=== PATIENT | female | born 2000 | race Caucasian/White ===

== ENCOUNTER 2022-04-25 16:26 | Emergency (ER) | payer OTHER ==
[~2022-04-25] VITALS: Ht 154.9 cm; Wt 60.3 kg
[2022-04-25] MEDS ORDERED: IBUPROFEN 600 MG TABLET PO ONE (17:00)
[2022-04-25] MEDS ORDERED: ACETAMINOPHEN ES 500 MG TABLET PO ONE ×2 (17:00→18:30)
[2022-04-25] MEDS ORDERED: IBUPROFEN 600 MG TABLET ONE (17:11)
[2022-04-25] MEDS ORDERED: ACETAMINOPHEN ES 500 MG TABLET ONE ×2 (17:11→18:26)
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
--- NOTE | 2022-04-25 17:20 | NUR ---
CT SCAN PERFORMED AT THIS TIME, FRIEND AT WAITING IN ROOM
[2022-04-25 17:46] VITALS: BP 120/63
--- NOTE | 2022-04-25 17:47 | NUR ---
IV R AC PATENT FLUSHING INTACT
[2022-04-25] MEDS ORDERED: IBUP-1953 PO (19:35)
--- NOTE | 2022-04-25 20:05 | NUR ---
Patient discharged to home in stable condition. Written and verbal after care instructions given. Patient verbalizes understanding of instruction.
== END 2022-04-25 20:06 | disposition home or self-care (01) ==
LOC: ER 16:29
DX: S29.012A Strain of muscle and tendon of back wall of thorax, initial encounter (principal); S20.219A Contusion of unspecified front wall of thorax, initial encounter; S40.022A Contusion of left upper arm, initial encounter; S90.812A Abrasion, left foot, initial encounter; M54.6 Pain in thoracic spine; M54.2 Cervicalgia; Z60.2 Problems related to living alone; V49.9XXA Car occupant (driver) (passenger) injured in unspecified traffic accident, initial encounter; Y93.89 Activity, other specified; Y92.89 Other specified places as the place of occurrence of the external cause; Y99.8 Other external cause status
CPT/HCPCS: 71045-TC; 72125-TC; 72128-TC; 73000-TC

== ENCOUNTER 2024-01-11 05:32 | Emergency (ER) | payer OTHER ==
[~2024-01-11] VITALS: Ht 152.4 cm; Wt 59.0 kg
[~2024-01-11 05:32] MED LIST: IBUP-1953 PO
[2024-01-11 06:49] LABS: BASOPHILS % (AUTO) 0.5 % (0.0-2.0); EOSINOPHILS % (AUTO) 0.5 % (0.0-6.0); HEMATOCRIT 39 % (33-45); HEMOGLOBIN 13.6 g/dL (11.5-14.8); LYMPHOCYTES # (AUTO) 1.9 K/uL (0.8-4.8); LYMPHOCYTES % (AUTO) 23.9 % (20.0-44.0); MEAN CORPUSCULAR HEMOGLOBIN 31 PG (26.0-33.0); MEAN CORPUSCULAR HGB CONC 35 g/dl (31.0-36.0); MEAN CORPUSCULAR VOLUME 89 fL (82-100); MONOCYTES # (AUTO) 0.4 K/uL (0.1-1.30); MONOCYTES % (AUTO) 5.6 % (2.0-12.0); NEUTROPHILS # (AUTO) 5.5 K/uL (1.8-8.9); NEUTROPHILS % (AUTO) 69.5 % (43.0-81.0); PLATELET COUNT (AUTO) 160 K/uL (150-450); RED BLOOD CELL COUNT(AUTO) 4.39 MIL/uL (4.0-5.2); RED CELL DISTRIBUTION WIDTH 12.7 % (11.5-15.0); WHITE BLOOD COUNT (AUTO) 7.9 K/uL (4.3-11.0)
[2024-01-11] MEDS: IV NS 0.9% 1,000 ML BAG IV ONE (06:49)
[2024-01-11 07:00] LABS: CALCIUM, SERUM 9.2 mg/dL (8.5-10.1); CREATININE 0.8 mg/dL (0.6-1.3); POTASSIUM 3.9 mmol/L (3.5-5.1)
[2024-01-11 07:07] LABS: ALBUMIN 3.9 g/dL (3.4-5.0); BILIRUBIN,DIRECT 0.2 mg/dL (0.0-0.2); BILIRUBIN,TOTAL 0.6 mg/dL (0.2-1.0); TOTAL PROTEIN, SERUM 7.8 g/dL (6.4-8.2)
[2024-01-11] MEDS ORDERED: CIPR-262 PO (07:14)
[2024-01-11] MEDS ORDERED: ONDA4TAB5 PO (07:14)
[2024-01-11 07:19] LABS: INR 1.08 (0.91-1.10); PARTIAL THROMBOPLASTIN TIME 25.9 SEC (24.3-34.3); PROTHROMBIN TIME 11.4 SECS (9.2-11.1)
[2024-01-11 07:34] LABS: APPEARANCE,URINE CLEAR (CLEAR); BILIRUBIN,URINE 1+ (NEGATIVE); BLOOD, URINE NEGATIVE Ery/uL (NEGATIVE); COLOR,URINE YELLOW (YELLOW); KETONES,URINE NEGATIVE (NEGATIVE); LEUKOCYTE ESTERASE ,URINE NEGATIVE (NEGATIVE); NITRITE, URINE NEGATIVE (NEGATIVE); PREGNANCY TEST URINE QUAL NEGATIVE (NEGATIVE); PROTEIN,URINE TRACE mg/dl (NEGATIVE); UGLUCOSE NEGATIVE (NEGATIVE); UROBILINOGEN,URINE 0.2 EU/dL (0.2)
[2024-01-11 07:37] LABS: ADD URINE CULTURE NO; BACTERIA,URINE Rare /HPF (None Seen); RBC,URINE 0-2 /HPF (0-2); SQUAMOUS EPITHELIAL CELL,UR Few /HPF (None Seen); WBC,URINE 0-2 /HPF (0-3)
[2024-01-11 08:30] VITALS: BP 120/79; TEMP 98; O2SAT 96
== END 2024-01-11 08:31 | disposition home or self-care (01) ==
LOC: ER 05:37
DX: R10.9 Unspecified abdominal pain (principal); R11.0 Nausea; R19.7 Diarrhea, unspecified; R10.2 Pelvic and perineal pain; Z79.899 Other long term (current) drug therapy; Z60.2 Problems related to living alone
CPT/HCPCS: 99283; 96360; 85025; 80048; 87086; 83690; 80076; 84703; 81001; 36415; 85730; 84702; J7030